=== PATIENT | female | born 1995 | race Caucasian/White ===

== ENCOUNTER → 2023-10-13 09:43 | Outpatient (BNVA) | payer OTHER, SELFPAY | PROVIDERS: Visit Provider Nurse Practitioner Family | DX: Z83.3 Family history of diabetes mellitus (principal); Z01.419 Encounter for gynecological examination (general) (routine) without abnormal findings; Z13.29 Encounter for screening for other suspected endocrine disorder; Z13.220 Encounter for screening for lipoid disorders; Z80.41 Family history of malignant neoplasm of ovary; E66.3 Overweight | CPT/HCPCS: 80053; 80061; 83036; 84443; 85025; 87491; 87591; 87624 ==